=== PATIENT | female | born 1965 | race Caucasian/White ===

== ENCOUNTER 2016-06-29 15:09 | Emergency (ER) | payer OTHER ==
[~2016-06-29] VITALS: Ht 160 cm; Wt 81.5 kg
[2016-06-29 15:27] VITALS: Ht 160 cm; Wt 81.5 kg
[2016-06-29] MEDS ORDERED: ACETAMINOPHEN 500 MG TAB PO STA (15:55)
[2016-06-29] MEDS ORDERED: ASPIRIN 81 MG TAB PO STA (15:55)
--- NOTE | 2016-06-29 16:07 | ERD ---
ER Documentation Chief Complaint Date/Time DATE: 06/29/16 TIME: 16:00 Chief Complaint CHEST PAIN RADIATING TO BACK, X3 DAYS HTN & DIZZINESS HPI 50yo F hx of HTN, well controlled with medications who presents to ED with chest pain. translator interpreter used. 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 It is not associated with shortness of breath or exertion. She had mild LH today and presents to the ED because she was concerned these symptoms may represent a heart attack. She has a PMD appointment tomorrow. No leg swelling, no exertional chest pain. no fhx of early cad, no smoking. Pay is mild currently. She has not taken any medication for pain (no apap or motrin). ROS All systems reviewed and are negative except as per history of present illness. Medications Home Meds Active Scripts Ibuprofen* (Motrin*) 800 Mg Tab, 800 MG PO Q6H Y for PAIN AND OR ELEVATED TEMP, #30 TAB Prov:VAUGHN WILLIS MD 06/29/16 Reported Medications Aspirin* (Aspirin* EC) 81 Mg Tablet.dr, 81 MG PO DAILY, TAB 06/29/16 Lisinopril/Hydrochlorothiazide (Lisinopril-Hctz 10-12.5 mg Tab) 1 Each Tablet, 1 EACH PO DAILY, TAB 06/29/16 Allergies Allergies: Coded Allergies: No Known Allergy (Unverified , 06/29/16) FmHx Family History: No coronary disease, No diabetes Physical Exam Vitals Vital Signs Date Time Temp Pulse Resp B/P Pulse Ox O2 Delivery O2 Flow Rate FiO2 06/29/16 15:27 98.7 75 20 116/71 100 Physical Exam General: Well developed, well nourished, no acute distress Head: Normocephalic, atraumatic. Eyes: Pupils equally reactive, EOM intact ENT: Moist mucous membranes Neck: Supple, no lymphadenopathy Respiratory: Lungs clear bilaterally, no distress, reproducible anterior chest wall tenderness along the left intercostal chest muscles Cardiovascular: RRR, no murmurs, rubs, or gallops Abdominal: Soft, non-tender, non-distended, no peritoneal signs : Deferred MSK: No edema, no unilateral swelling, 5/5 strength, no pulse deficits Neurologic: Alert and oriented, moving all extremities, normal speech, no focal weakness, no cerebellar signs Skin: No rash Psych: Normal mood Result Diagram: 06/29/16 1610 06/29/16 1610 Results 24 hrs Laboratory Tests Test 06/29/16 16:10 White Blood Count 10.910^3/ul Red Blood Count 4.5210^6/ul Hemoglobin 10.1g/dl Hematocrit 33.2% Mean Corpuscular Volume 73.5fl Mean Corpuscular Hemoglobin 22.3pg Mean Corpuscular Hemoglobin Concent 30.4g/dl Red Cell Distribution Width 17.5% Platelet Count 78561^3/UL Mean Platelet Volume 10.3fl Neutrophils % 59.1% Lymphocytes % 31.6% Monocytes % 7.0% Eosinophils % 1.3% Basophils % 0.6% Nucleated Red Blood Cells % 0.0/100WBC Neutrophils # 6.410^3/ul Lymphocytes # 3.410^3/ul Monocytes # 0.810^3/ul Eosinophils # 0.110^3/ul Basophils # 0.110^3/ul Nucleated Red Blood Cells # 0.010^3/ul Prothrombin Time 12.1Sec Prothrombin Time Ratio 0.9 INR International Normalized Ratio 0.90 Activated Partial Thromboplast Time 32.6Sec Sodium Level 136mmol/L Potassium Level 3.4mmol/L Chloride Level 103mmol/L Carbon Dioxide Level 23mmol/L Anion Gap 13 Blood Urea Nitrogen 16mg/dl Creatinine 0.70mg/dl Glucose Level 93mg/dl Calcium Level 9.2mg/dl Troponin I < 0.012ng/ml Current Medications Medications (Trade) Dose Ordered Sig/Corinne Route PRN Reason Start Time Stop Time Status Last Admin Dose Admin Aspirin (Aspirin) 162 mg ONCE STAT PO 06/29/16 15:55 06/29/16 15:57 DC 06/29/16 16:54 Acetaminophen (Tylenol Tab) 1,000 mg ONCE STAT PO 06/29/16 15:55 06/29/16 15:57 DC 06/29/16 16:54 Procedures/MDM EKG, MONITORS, & DIAGNOSTIC IMAGING: EKG: I reviewed and interpreted a 12-lead EKG. Rhythm: Normal sinus rhythm Ectopy: None Intervals: No abnormalities ST segments: No elevations or depressions T waves: No contiguous inversions Chest x-ray: I reviewed and interpreted a 1 view of the chest Mediastinum: No enlargement Cardiac silhouette: No cardiomegaly Airspace: Clear lung calderón bilaterally without evidence of pneumothorax Bones: No evidence of fracture LAB INTERPRETATION: Negative troponin MEDICAL DECISION MAKING: The patient's history, physical exam and clinical presentation is mostly consistent with musculoskeletal etiology given that she frequently uses the left upper extremity during her job she has reproducible symptoms with any movement of the shoulder and upper extremity and has palpable reproducible chest wall tenderness. Given her reproducible symptoms I do not believe this is consistent with dissection The patient meets the PERC RULE out criteria. Thus, less than 2% risk of pulmonary embolism with better alternative diagnosis. No indication for d- dimer or CT pulmonary angiogram at this time. Based on the patient's clinical exam and history and risk factors, I have a much lower clinical concern for pulmonary embolism, acute aortic dissection, pneumothorax, pneumonia, cardiac tamponade HEART Score: 2 given age and history of hypertension MACE Rate: Less than 1.7% Shared Decision Making: We had a conversation regarding risk stratification, MACE rate, and the risks, benefits, alternatives of disposition planning options. Disposition planning: Based on 3 days of symptoms, reproducible symptoms, low risk profile I do not feel that serial examinations in the emergency room are necessary. I did offer 3 hour repeat troponin or inpatient hospitalization but the patient has a primary care appointment tomorrow, has a better alternative diagnosis therefore the risks of false positive testing outweigh the benefits of serial examinations. The patient is agreeable to single troponin, EKG and outpatient follow-up with primary care physician. ER COURSE: Patient completed aspirin course here in the emergency room, Tylenol provided for pain control. I kept the patient and/or family informed of laboratory and diagnostic imaging results throughout the emergency room course. DISPOSITION PLAN: We discussed follow up with the patient's primary care doctor within 24 to 48 hours as needed. We also discussed return to the emergency room for worsening symptoms or worsening condition. Outpatient referral: Primary care tomorrow morning Discharge Medications: Motrin Departure Diagnosis: Primary Impression: Strain of chest wall Encounter type: initial encounter Qualified Code: S29.011A - Strain of chest wall, initial encounter Additional Impression: Atypical chest pain Condition: Stable VAUGHN WILLIS MD June 29, 2016 16:07
[2016-06-29 17:00] LABS: ADD SCAN DIFF NO
[2016-06-29 17:01] LABS: BASOPHIL # 0.1 10^3/ul (0.0-0.1); BASOPHILS % 0.6 % (0.0-2.0); EOSINOPHILS # 0.1 10^3/ul (0.0-0.5); EOSINOPHILS % 1.3 % (0.0-7.0); HEMATOCRIT 33.2 % (37.0-47.0); HEMOGLOBIN 10.1 g/dl (12.0-16.0); LYMPHOCYTES # 3.4 10^3/ul (0.8-2.9); LYMPHOCYTES % 31.6 % (15.0-51.0); MEAN CORPUSCULAR HEMOGLOBIN 22.3 pg (29.0-33.0); MEAN CORPUSCULAR HGB CONC 30.4 g/dl (32.0-37.0); MEAN CORPUSCULAR VOLUME 73.5 fl (82.0-101.0); MEAN PLATELET VOLUME 10.3 fl (7.4-10.4); MONOCYTE # 0.8 10^3/ul (0.3-0.9); NEUTROPHIL # 6.4 10^3/ul (1.6-7.5); NEUTROPHILS % 59.1 % (39.0-77.0); PLATELET COUNT 398 10^3/UL (140-415); RED BLOOD COUNT 4.52 10^6/ul (4.20-5.40); RED CELL DISTRIBUTION WIDTH 17.5 % (11.5-14.5); WHITE BLOOD COUNT 10.9 10^3/ul (4.8-10.8)
[2016-06-29] MEDS ORDERED: LISI1TAB4 PO (17:07)
[2016-06-29] MEDS ORDERED: ASPI-664 PO (17:08)
--- NOTE | 2016-06-29 17:09 | RADRPT ---
PROCEDURE: XR Chest AP portable CLINICAL INDICATION: Chest pain TECHNIQUE: An AP portable radiograph of the chest was submitted. COMPARISON: None. FINDINGS: Support Hardware: None Cardiovascular: The cardiovascular silhouette appears unremarkable. Lung Calderón: The lung calderón appear clear with no nodule, alveolar infiltrate, or interstitial promi nence evident. Pleural Spaces: No pneumothorax or pleural effusion is identified. Osseous Structures: The osseous structures appear intact. Soft Tissues: The soft tissues appear generous. IMPRESSION: Unremarkable portable chest. Physician Alejo Date Time Electronically viewed and signed by Gemma Tsai Physician on 06/29/2016 17:08 /
[2016-06-29 17:17] LABS: INR 0.9; PROTIME 12.1 Sec (12.2-14.2); PT RATIO 0.9
[2016-06-29 17:18] LABS: PARTIAL THROMBOPLASTIN TIME 32.6 Sec (25.0-35.0)
[2016-06-29 17:23] LABS: ANION GAP 13 (8-16); BLOOD UREA NITROGEN 16 mg/dl (7-20); CALCIUM 9.2 mg/dl (8.4-10.2); CARBON DIOXIDE 23 mmol/L (21-31); CHLORIDE 103 mmol/L (97-110); GLUCOSE 93 mg/dl (70-220); POTASSIUM 3.4 mmol/L (3.5-5.1); SODIUM 136 mmol/L (135-144)
[2016-06-29 17:36] LABS: TROPONIN-I < 0.012 ng/ml (0.00-0.12)
[2016-06-29] MEDS ORDERED: IBUP800T25 PO (18:11)
[2016-06-29 18:38] VITALS: BP 108/58; PULSE 76; RESP 20; TEMP 97.9
== END 2016-06-29 18:53 | disposition home or self-care (01) ==
LOC: E/R 15:09
DX: S29.011A Strain of muscle and tendon of front wall of thorax, initial encounter (principal); I10 Essential (primary) hypertension; R07.89 Other chest pain; X50.9XXA Other and unspecified overexertion or strenuous movements or postures, initial encounter; Y92.89 Other specified places as the place of occurrence of the external cause; Z79.82 Long term (current) use of aspirin
CPT/HCPCS: 71010; 80048; 84484; 85025; 85610; 85730; 93005